=== PATIENT | male | born 1985 | race Caucasian/White ===

== ENCOUNTER → 2017-01-14 | Outpatient (CLI) | payer OTHER ==
[2017-01-29 14:32] LABS: IGF BINDING PROTEIN 1 <1.0
== END ==
LOC: MOB LAB 11:57
PROVIDERS: ATTEND Family Medicine
DX: E22.0 Acromegaly and pituitary gigantism (principal)
CPT/HCPCS: 36415; 83519; 83520; 84146

== ENCOUNTER 2017-04-01 19:09 | Emergency (ER) | payer OTHER ==
[2017-04-01] MEDS ORDERED: Lidocaine 1% 10 MG/ML - 20 ML VIAL SUBCUT ONE (19:32)
[2017-04-01] MEDS ORDERED: Lidocaine Inj 1% 20 ML ONE (19:32)
[2017-04-01] MEDS ORDERED: TETRACAINE 0.5% - 2 ML EYE DROPS ONE (19:40)
[2017-04-01] MEDS ORDERED: Sodium Chloride 0.9% 1,000 ML PRIMARY IV ONE (19:56)
[2017-04-01] MEDS ORDERED: NORMAL SALINE 10 ML SYRINGE FLUSH IVP PRN (19:56)
[2017-04-01] MEDS ORDERED: Sodium Chloride 0.9% 1,000 ML ONE (20:00)
[2017-04-01] MEDS ORDERED: Tetracaine Ophth Soln 0.5% 40 DRP/4 ML BOTTLE EACH EYE ONE (20:11)
[2017-04-01] MEDS ORDERED: MORPHINE SULFATE 4 MG/1 ML IVP ONE (20:13)
[2017-04-01] MEDS ORDERED: MORPHINE SULFATE 4 MG/1 ML ONE (20:14)
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
[2017-04-01] MEDS ORDERED: Mupirocin Ointment 2% 22 gm Tube TOPICAL ONE (21:27)
[2017-04-01] MEDS ORDERED: Mupirocin Ointment 2% 22 gm Tube TOPICAL SCH (21:30)
[2017-04-01] MEDS ORDERED: HYDROcodone-APAP 10 MG-325 MG TABLET PO ONE (21:47)
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
[2017-04-01 23:55] VITALS: TEMP 97
[2017-04-01 23:57] VITALS: RESP 16
== END 2017-04-01 21:52 | disposition home or self-care (01) ==
LOC: ER 19:09
DX: S06.0X1A Concussion with loss of consciousness of 30 minutes or less, initial encounter (principal); S01.112A Laceration without foreign body of left eyelid and periocular area, initial encounter; S01.111A Laceration without foreign body of right eyelid and periocular area, initial encounter; R22.1 Localized swelling, mass and lump, neck; V86.59XA Driver of other special all-terrain or other off-road motor vehicle injured in nontraffic accident, initial encounter
CPT/HCPCS: 12011; 70450; 96361; 96374; 99282; 99283; J2001; J2270; J7030

== ENCOUNTER → 2017-04-10 | Outpatient (CLI) | payer OTHER ==
--- NOTE | 2017-04-11 12:55 | DI ---
MRI BRAIN SCAN WITHOUT AND WITH IV CONTRAST, 04/10/2017 9:00 AM: Clinical History: Acromegaly. Previous Exam: None at this facility. Sequences: Axial and sagittal T1 pre contrast and axial and coronal post contrast; axial T2 and FLAIR . Diffusion weighted images with ADC mapping are also performed. Contrast Dose: 20 mL of ProHance (279.3 mg/mL). The 4th, 3rd, and lateral ventricles are of normal size, shape, position, and contour for this patien t's age. There is a 30 x 30 x 30 mm tumor mass arising from a markedly expanded sella turcica consist ent with a pituitary adenoma. The periphery of the tumor shows enhancement, but the tissue comprising the tumor is homogeneous and does not show any enhancement. The tumor does displace the right optic tract and the right optic nerve superiorly but does not displace the left optic tract or nerve. There are no other abnormal enhancing lesions. Diffusion weighted imaging with ADC mapping is otherwise no rmal. There are no extracerebral mantels or shift of the midline structures. The paranasal sinuses ar e normal. There is marked hypertrophy of the scalp and macroglossia. Readin. There is a 30 mm intrasellar tumor consistent with a pituitary adenoma. The tumor is displacing t he right side of the optic nerve, chiasm, and optic tract superiorly. The left side is in a normal po sition. 2. Scans of the brain pre-and postcontrast are otherwise normal. Diffusion-weighted imaging with ADC mapping is also otherwise normal. 3. There is macroglossia marked hypertrophic change of the scalp particularly toward the occiput and vertex of the skull.
== END ==
LOC: MRI 08:57
PROVIDERS: ATTEND Family Medicine
DX: E22.0 Acromegaly and pituitary gigantism (principal); D35.2 Benign neoplasm of pituitary gland
CPT/HCPCS: 70553